=== PATIENT | female | born 1960 | race Caucasian/White ===

== ENCOUNTER 2017-05-05 11:10 | Emergency (ER) | payer BC ==
--- NOTE | 2017-05-05 12:26 | UC ---
Abdominal Pain Female HPI - HPI Summary HPI Summary: 56 yo female with LLQ abd pain x 4-5 days no f/c no n/v slighty softer stools she has had diverticulitis in the past and states this feels the same she does not wish to be imaged because she has required extensive imaging for her various medical problems In process of moving here/no local MD - History of Current Complaint Chief Complaint: UCAbdominalPain Stated Complaint: ABD PAIN Time Seen by Provider: 05/05/17 12:15 Hx Obtained From: Patient Onset/Duration: Gradual Onset Timing: Constant Severity Initially: Moderate Severity Currently: Moderate Pain Intensity: 4 - worse with movement Pain Scale Used: 0-10 Numeric Location: Discrete At: LLQ Radiates: No Character: Aching, Cramping Aggravating Factor(s): Food, Movement Alleviating Factor(s): Nothing Associated Signs and Symptoms: Negative: Diaphoresis, Fever, Cough, Chest Pain, Dizzy, Back Pain, Constipation, Blood in Stool, Urinary Symptoms, Decreased Appetite, Vaginal Bleeding, Vaginal Discharge, Nausea, Vomiting, Diarrhea Simlar Episode/Dx as:: diverticulitis x 4-5 Allergies/Adverse Reactions: Allergies Allergy/AdvReac Type Severity Reaction Status Date / Time Prochlorperazine Allergy Severe See Comment Verified 05/05/17 11:36 [From Compazine] Azithromycin [From Zithromax] AdvReac Mild Diarrhea Verified 05/05/17 11:36 Home Medications: Home Medications Cholecalciferol [Vitamin D] 1,000 unit PO DAILY 05/05/17 [History Confirmed ] Letrozole 2.5 mg PO DAILY 05/05/17 [History Confirmed 05/05/17] Lisinopril/HCTZ 20/12.5(NF) [Zestoretic 20/12.5(NF)] 1 tab PO DAILY 05/05/17 [ History Confirmed 05/05/17] Multiple Vitamin [Multiple Vitamins] 1 tab PO DAILY 05/05/17 [History Confirmed 05/05/17] Potassium Chloride [Potassium Chloride ER] 10 meq PO DAILY 05/05/17 [History Confirmed 05/05/17] PMH/Surg Hx/FS Hx/Imm Hx Previously Healthy: Yes Cardiovascular History: Hypertension GI/ History: Diverticulitis Cancer History: Breast Cancer - Surgical History Surgical History: Yes Surgery Procedure, Year, and Place: x1, L masectomy - Social History Alcohol Use: Weekly Substance Use Type: None Smoking Status (MU): Never Smoked Tobacco Review of Systems Constitutional: Negative Skin: Negative Eyes: Negative ENT: Negative Respiratory: Negative Cardiovascular: Negative Gastrointestinal: Abdominal Pain Genitourinary: Negative Motor: Negative Neurovascular: Negative Musculoskeletal: Negative Neurological: Negative Psychological: Negative Is Patient Immunocompromised?: No All Other Systems Reviewed And Are Negative: Yes Physical Exam Triage Information Reviewed: Yes Appearance: Well-Appearing, No Pain Distress, Well-Nourished Vital Signs: Initial Vital Signs Temp 98.8 F 05/05/17 11:24 Pulse 82 05/05/17 11:24 Resp 16 05/05/17 11:24 BP 133/71 05/05/17 11:24 Pulse Ox 100 05/05/17 11:24 Eyes: Positive: Conjunctiva Clear ENT: Positive: Hearing grossly normal. Negative: TMs normal, TM bulging, Sinus tenderness, Uvula midline Neck: Positive: Supple, Nontender, No Lymphadenopathy Respiratory: Positive: Lungs clear, Normal breath sounds, No respiratory distress, No accessory muscle use Cardiovascular: Positive: RRR, No Murmur Abdomen Description: Negative: Nontender - tender LLQ, CVA Tenderness (R), CVA Tenderness (L) Musculoskeletal: Positive: ROM Intact, No Edema Neurological: Positive: Alert, Muscle Tone Normal Psychological Exam: Normal Skin Exam: Normal Abd Pain Female Course/Dx - Differential Dx/Diagnosis Provider Diagnoses: diverticulitis Discharge - Discharge Plan Condition: Stable Disposition: HOME Prescriptions: Ciprofloxacin TAB* [Cipro 750 MG Tab*] 750 mg PO BID #14 tab Metronidazole [Flagyl 500 MG TAB] 500 mg PO QID #28 tab Patient Education Materials: Diverticulitis (ED) [place] [facility] [place] [facility] [place]Outside] - As Soon As Possible (call for help in finding a local provider) Additional Instructions: recheck for new or worsening symptoms (ER) recheck in 3-4 days if not better call the physician referral center to find a local MD don't hesitate to call with any questions
== END 2017-05-05 12:37 | disposition home or self-care (01) ==
LOC: UCEAST 11:10
DX: K57.92 Diverticulitis of intestine, part unspecified, without perforation or abscess without bleeding (principal); I10 Essential (primary) hypertension; Z88.8 Allergy status to other drugs, medicaments and biological substances; Z88.1 Allergy status to other antibiotic agents
CPT/HCPCS: 99202; G0463

== ENCOUNTER 2018-04-26 11:11 | Inpatient (IN) | payer BC ==
--- NOTE | 2018-04-18 17:15 | HP ---
HISTORY AND PHYSICAL: DATE OF ADMISSION/SURGERY: 04/26/18 DATE OF OFFICE VISIT: 04/18/18 SURGEON: Gladys Dunn MD * (DICTATED BY ADAN CHAMBERS) PROCEDURE: Left total knee arthroplasty. CHIEF COMPLAINT: Left knee pain. HISTORY OF PRESENT ILLNESS: Ms. Noel is a 57-year-old female with continued complaints of left knee pain. She has failed conservative treatment and elected to proceed with a left total knee arthroplasty. PAST MEDICAL HISTORY: Breast cancer, hypertension, and diverticulitis. PAST SURGICAL HISTORY: Appendectomy, lumpectomy, mastectomy, hysterectomy, C- section, and breast biopsies. CURRENT MEDICATIONS: 1. Potassium chloride. 2. Lisinopril/hydrochlorothiazide 20/12.5 mg 2 tabs every day. 3. Calcium. 4. Vitamin D. 5. Tamoxifen 20 mg daily. ALLERGIES: To ZITHROMAX and COMPAZINE. FAMILY HISTORY: Cancer. SOCIAL HISTORY: She is a 57-year-old female. She lives alone. She does not smoke or use drugs. Uses occasional alcohol. REVIEW OF SYSTEMS: A complete 14-point review of systems was reviewed with the patient. It was all negative or noncontributory. She denies history of DVT, PE , hepatitis, HIV, or anesthesia problems. PHYSICAL EXAMINATION GENERAL: She is well developed, well nourished, in no acute distress. VITAL SIGNS: She stands 5 feet 1 inch tall, weighs 182 pounds. Her blood pressure is 108/62 and her heart rate is 96. HEENT: Normocephalic, atraumatic. NECK: Supple. No palpable lymph nodes. PULMONARY: The lungs are clear to auscultation bilaterally. CARDIO: Regular rate and rhythm. Strong S1, S2. ABDOMEN: Soft, nontender, nondistended. NEUROLOGICAL: She is alert and oriented x3. MUSCULOSKELETAL: Left lower extremity: The skin is intact. There are no open wounds or abrasions. Range of motion is 10 to 120 degrees of flexion. There is a large joint effusion. She has tenderness over the medial and lateral joint line. She has 2+ dorsalis pedis pulse. Her lower extremity muscle group strengths are intact at 5/5. ASSESSMENT AND PLAN: Ms. Noel is a 57-year-old female with end-stage osteoarthritis of the left knee. She has failed conservative treatment and she has elected to proceed with surgery, which is scheduled for 04/26/[address] Dunn discussed the risks and benefits of the surgery at today's visit and all of her questions were answered. She will follow up in 2 weeks after the surgery. ADAN CHAMBERS [id number]/[facility] #: [id number] JESSICA
[~2018-04-26 11:11] MED LIST: Acetaminophen IV 1GM/100ML * 1,000 MG/100 ML VIAL IVPB ONE; Buffered Lidocaine 0.9% SYRIN* 5 ML/SYR SYRINGE INTRADERM ONE; Dexamethasone IV* 4 MG/ML 1 ML (4 MG) IV SLOW PU ONE; Famotidine IV* 10 MG/ML 2 ML (20 mg) IV ONE; Gabapentin CAP(*) 300 MG PO ONE; Lactated Ringers 1000 ML Bag* 1,000 ML IV SCH; Tranexamic Acid 1,000 MG in NS 0.9% 50 ML* (outpatient use) IV SCH; celeCOXIB CAP* 200 MG PO ONE
--- OUTSIDE RECORDS SUMMARY | 2018-04-26 11:16 | XMS REPORT | Continuity of Care Document ---
:1960 External Reference #:[id number] Author Name Alesia King Care Team Providers Name Role Phone Rajiv Chavez MD Primary Care Physician Unavailable Payers Type Date Identification Numbers Payment Provider Subscriber Policy Number: [id number] [employer] Yady Noel PayID: [id number] [address] [address] [id number] Advance Directives Description No Information Available Problems Date Description Provider Status Onset: 07/26/2017 Essential hypertension Chloe Chavarria NP Active Onset: 07/26/2017 Malignant neoplasm of female breast Chloe Chavarria NP Active Note: left Breast Ca with - sentinal node 2000, recurrance in lymph node - Mastectomy 2009 Onset: 07/26/2017 Osteoporosis Chloe Chavarria NP Active Onset: 07/26/2017 Arthritis of knee Chloe Chavarria NP Active Onset: 10/18/2017 Localized, primary osteoarthritis Gladys Dunn M.D. Active Onset: 02/16/2018 Diverticular disease Delta Marcos M.D.,FACP Note: on CT Onset: 07/26/2017 Hypokalemia Chloe Chavarria NP Resolved Resolved: 02/16/2018 Family History Date Family Member(s) Problem(s) Comments Father Hypertension Father due to Dementia () Father Dementia age 76 Mother Arthritis Mother Breast Cancer Dx early 70's, living at age 77 Siblings 2 Social History Type Date Description Comments Sex Unknown Marital Status Single Lives With Alone partner on weekends Occupation [employer] Tobacco Use Start: Unknown End: Former Cigarette Smoker Unknown ETOH Use 02/16/2018 Drinks 2 Alcoholic Beverages Per Week Tobacco Use Start: Unknown End: Patient is a former smoked 1 pk/day for Unknown smoker 6 yrs age [age] Recreational Drug Use Denies Drug Use Tobacco Use Start: Unknown Light tobacco smoker (10 or fewer cigarettes/day) Smoking Status Reviewed: 04/18/18 Light tobacco smoker (10 or fewer cigarettes/day) Exercise Type/Frequency Exercises rarely Allergies, Adverse Reactions, Alerts Date Description Reaction Status Severity Comments 07/26/2017 Zithromax upset stomach Active 07/26/2017 Compazine severe depression Active Medications Medication Date Status Form Strength Qnty SIG Indications Ordering Provider Potassium Active Tablets ER 10Meq 180tab take 2 Rajiv Chloride ER 018 s tablets D. Kathy, by mouth M.DAndry,FACP every day Lisinopril-Hyd Active Tablets 20-12.5mg 60tabs Take 2 Solomon rochlorothiazi 018 Tablets Pachikara, de By Mouth M.D. Every Day Calcium 600 Active Tablets 600mg daily Unknown High Potency 000 Vitamin D High Active Capsules 1000Unit 1 by Unknown Potency 000 mouth every day Tamoxifen Active Tablets 20mg daily Unknown Citrate 000 Advil Hx Tablets 200mg 2 tabs 2 Rajiv 018 - times a D. [place], day as Kaila,FACP 018 needed Benzonatate Hx Capsules 200mg 21caps one tab R05 Chloe 018 - three Chavarria, times a [employer] 018 day for cough Multi For Her Hx Capsules once a Unknown 000 - day otc 018 Lisinopril Hx Tablets 20mg 1 by Unknown 000 - mouth every day 018 Letrozole Hx Tablets 2.5mg 1 by Unknown 000 - mouth every day 018 Medications Administered in Office Medication Date Status Form Strength Qnty SIG Indications Ordering Provider Synvisc Or Administered Injection Gladys Synvisc-One Shena Dunn M.D. Injection 1 MG Synvisc Or Administered Injection Gladys Synvisc-One 018 Kaila Dunn Injection 1 MG Synvisc Or Administered Injection Magnolia B Synvisc-One 018 Dobson, Injection 1 MG PA Synvisc Or Administered Injection Magnolia B Synvisc-One 018 Dobson, Injection 1 MG PA Synvisc Or Administered Injection Gladys Synvisc-One 018 Kaila Dunn Injection 1 MG Synvisc Or Administered Injection Gladys Synvisc-One Shena Dunn M.D. Injection 1 MG Immunizations Description No Information Available Vital Signs Date Vital Result Comment 04/18/2018 8:34am Height 61 inches 5'1" Weight 182.00 lb Heart Rate 96 /min BP Systolic 108 mmHg BP Diastolic 62 mmHg BMI (Body Mass Index) 34.4 kg/m2 04/16/2018 3:56pm Height 60 inches 5'0" Weight 183.00 lb Heart Rate 83 /min BP Systolic Sitting 128 mmHg large adult cuff right arm BP Diastolic Sitting 80 mmHg large adult cuff right arm Body Temperature 98.3 F O2 % BldC Oximetry 97 % at rest on room air BMI (Body Mass Index) 35.7 kg/m2 03/23/2018 8:11am Height 61 inches 5'1" Weight 186.00 lb BP Systolic 144 mmHg BP Diastolic 86 mmHg Body Temperature 98.4 F BMI (Body Mass Index) 35.1 kg/m2 02/16/2018 8:24am Height 61 inches 5'1" Weight 183.00 lb Heart Rate 85 /min BP Systolic Sitting 120 mmHg BP Diastolic Sitting 68 mmHg BP Systolic Recheck 132 mmHg BP Diastolic Recheck 70 mmHg Body Temperature 97.9 F O2 % BldC Oximetry 97 % BMI (Body Mass Index) 34.6 kg/m2 11/29/2017 9:37am Height 61 inches 5'1" Weight 180.00 lb BP Systolic 130 mmHg BP Diastolic 84 mmHg Body Temperature 98.4 F BMI (Body Mass Index) 34.0 kg/m2 11/22/2017 10:29am Height 61 inches 5'1" Weight 179.00 lb BP Systolic 126 mmHg BP Diastolic 82 mmHg Body Temperature 99.1 F BMI (Body Mass Index) 33.8 kg/m2 11/15/2017 8:06am Height 61 inches 5'1" Weight 179.00 lb BP Systolic 130 mmHg BP Diastolic 74 mmHg Respiratory Rate 16 /min Body Temperature 98.2 F Pain Level 8 BMI (Body Mass Index) 33.8 kg/m2 10/18/2017 8:20am Height 61 inches 5'1" Weight 179.00 lb BP Systolic 122 mmHg BP Diastolic 71 mmHg Respiratory Rate 15 /min Pain Level 7 BMI (Body Mass Index) 33.8 kg/m2 07/26/2017 2:26pm Height 61 inches 5'1" Weight 179.00 lb Heart Rate 80 /min BP Systolic 118 mmHg BP Diastolic 70 mmHg Body Temperature 100.0 F O2 % BldC Oximetry 98 % BMI (Body Mass Index) 33.8 kg/m2 Results Test Date Facility Test Result H/L Range Note Basic Metabolic 04/17/2018 [facility] Sodium 141 mmol/L N 135- [address] [place] [address] [phone] Potassium 3.7 mmol/L N 3.5-5.0 Chloride 104 mmol/L N 101-111 Co2 Carbon Dioxide 27 mmol/L N 22-32 Anion Gap 10 mmol/L N 2-11 Glucose 128 mg/dL High 70-100 Blood Urea Nitrogen 18 mg/dL N 6-24 Creatinine 0.68 mg/dL N 0.51-0.95 BUN/Creatinine Ratio 26.5 High 8-20 Calcium 9.5 mg/dL N 8.6-10.3 Egfr Non- 89.8 >60 Egfr 108.7 >60 1 CBC Auto Diff 04/17/2018 [facility] White Blood 7.8 10^3/uL N 3.5-10.[address] [place] [address] [phone] Red Blood Count 4.43 10^6/uL N 4.00-5.40 Hemoglobin 13.0 g/dL N 12.0-16.0 Hematocrit 39 % N 35-47 Mean Corpuscular Volume 87 fL N 80-97 Mean Corpuscular Hemoglobin 30 pg N 27-31 Mean Corpuscular HGB Conc 34 g/dL N 31-36 Red Cell Distribution Width 14 % N 10.5-15 Platelet Count 325 10^3/uL N 150-450 Mean Platelet Volume 8.7 fL N 7.4-10.4 Abs Neutrophils 4.8 10^3/uL N 1.5-7.7 Abs Lymphocytes 2.3 10^3/uL N 1.0-4.8 Abs Monocytes 0.4 10^3/uL N 0-0.8 Abs Eosinophils 0.2 10^3/uL N 0-0.6 Abs Basophils 0.1 10^3/uL N 0-0.2 Abs Nucleated RBC 0 10^3/uL Granulocyte % 61.4 % Lymphocyte % 29.7 % Monocyte % 5.4 % Eosinophil % 2.8 % Basophil % 0.7 % Nucleated Red Blood Cells % 0 Laboratory test 04/17/2018 [facility] Partial 29.6 seconds N 26.0-36.3 finding [address] [facility] [place] [address] PTT [phone] Inr/Protime 04/17/2018 [facility] Inr 1.01 N 0.77-1.02 [address] [place] [address] [phone] Basic Metabolic 11/17/2017 [facility] Sodium 138 mmol/L N 135- 145 Panel [address] [place] [address] [phone] Potassium 3.8 mmol/L N 3.5-5.0 Chloride 105 mmol/L N 101-111 Co2 Carbon Dioxide 27 mmol/L N 22-32 Anion Gap 6 mmol/L N 2-11 Glucose 95 mg/dL N 70-100 Blood Urea Nitrogen 17 mg/dL N 6-24 Creatinine 0.66 mg/dL N 0.51-0.95 BUN/Creatinine Ratio 25.8 High 8-20 Calcium 9.4 mg/dL N 8.6-10.3 Egfr Non- 93.0 >60 Egfr 112.5 >60 2 Lipid Profile 11/17/2017 [facility] Triglycerides 212 mg/dL 3 (Trig/Chol/HDL) [address] [place] [address] [phone] Cholesterol 213 mg/dL 4 HDL Cholesterol 41.5 mg/dL 5 LDL Cholesterol 129 mg/dL 6 1 Because ethnic data is not always readily available, this report includes an eGFR for both -Americans and non- Americans. The National Kidney Disease Education Program (NKDEP) does not endorse the use of the MDRD equation for patients that are not between the ages of 18 and 70, are , have extremes of body size, muscle mass, or nutritional status, or are non- or non-. According to the National Kidney Foundation, irrespective of diagnosis, the stage of the disease is based on the level of kidney function: Stage Description GFR(mL/min/1.73 m(2)) 1 Kidney damage with normal or decreased GFR 90 2 Kidney damage with mild decrease in GFR 60-89 3 Moderate decrease in GFR 30-59 4 Severe decrease in GFR 15-29 5 Kidney failure <15 (or dialysis) 2 Because ethnic data is not always readily available, this report includes an eGFR for both -Americans and non- Americans. The National Kidney Disease Education Program (NKDEP) does not endorse the use of the MDRD equation for patients that are not between the ages of 18 and 70, are , have extremes of body size, muscle mass, or nutritional status, or are non- or non-. According to the National Kidney Foundation, irrespective of diagnosis, the stage of the disease is based on the level of kidney function: Stage Description GFR(mL/min/1.73 m(2)) 1 Kidney damage with normal or decreased GFR 90 2 Kidney damage with mild decrease in GFR 60-89 3 Moderate decrease in GFR 30-59 4 Severe decrease in GFR 15-29 5 Kidney failure <15 (or dialysis) 3 Desirable: <150 Borderline High: 150-199 High: 200-499 Very High: >500 4 Desirable: <200 Borderline High: 200-239 High: >239 5 Low: <40 Desirable: 40-60 High: >60 6 Desirable: <100 Near Optimal: 100-129 Borderline High: 130-159 High: 160-189 Very High: >189 Procedures Date Code Description Status 04/16/2018 83061 EKG Tracing & Interpretation Completed 12/15/2017 64455200 Mammogram Completed 11/29/2017 Inject/Drain Joint/Bursa Major W/O US Completed 11/22/2017 Inject/Drain Joint/Bursa Major W/O US Completed 11/15/2017 Inject/Drain Joint/Bursa Major W/O US Completed Encounters Type Date Location Provider Dx Diagnosis Office Visit 03/23/2018 [facility] Gladys Dunn, M25.561 Pain in right 8:00a [facility] Bright knee M25.562 Pain in left knee M25.461 Effusion, right knee M25.462 Effusion, left knee M17.0 Bilateral primary osteoarthritis of knee Office Visit 02/16/2018 8:40a [facility] Internal Rajiv Valdez I10 Essential ( primary) Medicine - Kaila Chavez,FACP hypertension [address] M17.0 Bilateral primary osteoarthritis of knee M81.8 Other osteoporosis without current pathological fracture Office Visit 10/18/2017 8:00a [facility] Gladys Dunn, M25.561 Pain in right [facility] knee M25.562 Pain in left knee M25.461 Effusion, right knee M25.462 Effusion, left knee M17.0 Bilateral primary osteoarthritis of knee M19.071 Primary osteoarthritis, right ankle and foot Office Visit 07/26/2017 2:00p [facility] Internal Chloe B34.9 Viral infection, Medicine - Aura, [employer] unspecified [address] R05 Cough I10 Essential (primary) hypertension Plan of Treatment Future Appointment(s):04/26/2018 12:30 pm - Russ Hernandez PA-C at [facility]04/26/2018 12:30 pm - ADAN Kasper at [facility]04/26/2018 12:30 pm - Gladys Dunn M.D. at [facility]07/16/2018 9:00 am - Rajiv Chavez M.D.,FACP at [facility] Internal Medicine - [address]/18/2018 - Gladys Dunn M.D.M25.562 Pain in left kneeFollow up:Follow up: 2 weeks after hcyloveV01.462 Effusion, left kneeM17.12 Unilateral primary osteoarthritis, left knee
--- OUTSIDE RECORDS SUMMARY | 2018-04-26 11:16 | XMS REPORT | Continuity of Care Document ---
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 [facility] Tobacco Use Start: Unknown End: Former Cigarette Smoker Unknown ETOH Use 02/16/2018 Drinks 2 Alcoholic Beverages Per Week Tobacco Use Start: Unknown End: Patient is a former smoked 1 pk/day for Unknown smoker 6 yrs age [age] Recreational Drug Use Denies Drug Use Tobacco Use Start: Unknown Light tobacco smoker (10 or fewer cigarettes/day) Smoking Status Reviewed: 04/16/18 Light tobacco smoker (10 or fewer cigarettes/day) Exercise Type/Frequency Exercises rarely Allergies, Adverse Reactions, Alerts Date Description Reaction Status Severity Comments 07/26/2017 Zithromax upset stomach Active 07/26/2017 Compazine severe depression Active Medications Medication Date Status Form Strength Qnty SIG Indications Ordering Provider Advil Active Tablets 200mg 2 tabs 2 Rajiv 018 times a D. Strong, day as M.D.,FACP needed Potassium Active Tablets ER 10Meq 180tab take 2 Rajiv Chloride ER 018 s tablets D. Strong, by mouth M.D.,FACP every day Lisinopril-Hyd Active Tablets 20-12.5mg 60tabs Take 2 [place] rochlorothiazi 018 Tablets Pachikara, de By Mouth M.D. 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 018 day for cough Lisinopril Hx Tablets 20mg 1 by Unknown 000 - mouth every day 018 Letrozole Hx Tablets 2.5mg 1 by Unknown 000 - mouth every day 018 Medications Administered in Office Medication Date Status Form Strength Qnty SIG Indications Ordering Provider Synvisc Or Administered Injection Gladys Synvisc-One 018 Kaila Dunn Injection 1 MG Synvisc Or Administered Injection Gladys Synvisc-One 018 Kaila Dunn Injection 1 MG Synvisc Or Administered Injection Magnolia B Synvisc-One 018 Dobson, Injection 1 MG PA Synvisc Or Administered Injection Magnolia B Synvisc-One 018 Dobson, Injection 1 MG PA Synvisc Or Administered Injection Gladys Synvisc-One Shena Dunn M.D. Injection 1 MG Synvisc Or Administered Injection Gladys Synvisc-One Shena Dunn M.D. Injection 1 MG Immunizations Description No Information Available Vital Signs Date Vital Result Comment 04/16/2018 3:56pm Height 60 inches 5'0" Weight [...] Test Result H/L Range Note Basic Metabolic 11/17/2017 [facility] Sodium 138 mmol/L N 135- [address] [place] [address] [phone] Potassium 3.8 mmol/L N 3.5-5.0 Chloride 105 mmol/L N 101-111 Co2 Carbon Dioxide 27 mmol/L N 22-32 Anion Gap 6 mmol/L N 2-11 Glucose 95 mg/dL N 70-100 Blood Urea Nitrogen 17 mg/dL N 6-24 Creatinine 0.66 mg/dL N 0.51-0.95 BUN/Creatinine Ratio 25.8 High 8-20 Calcium 9.4 mg/dL N 8.6-10.3 Egfr Non- 93.0 >60 Egfr 112.5 >60 1 Lipid Profile 11/17/2017 [facility] Triglycerides 212 mg/dL 2 (Trig/Chol/HDL) [address] [place] [address] [phone] Cholesterol 213 mg/dL 3 HDL Cholesterol 41.5 mg/dL 4 LDL Cholesterol 129 mg/dL 5 1 Because ethnic data is not always [...] 5 Kidney failure <15 (or dialysis) 2 Desirable: <150 Borderline High: 150-199 High: 200-499 Very High: >500 3 Desirable: <200 Borderline High: 200-239 High: >239 4 Low: <40 Desirable: 40-60 High: >60 5 Desirable: <100 Near Optimal: 100-129 Borderline High: 130-159 High: 160-189 Very High: >189 Procedures Date Code Description Status 12/15/2017 [id number] Mammogram Completed 11/29/2017 Inject/Drain Joint/Bursa Major W/O US Completed 11/22/2017 Inject/Drain Joint/Bursa Major W/O US Completed 11/15/2017 Inject/Drain Joint/Bursa Major W/O US Completed Encounters Type Date Location Provider Dx Diagnosis Office Visit 03/23/2018 Orthopedic Gladys Dunn, M25.561 Pain in right 8:00a [facility] Bright knee M25.562 Pain in left knee M25.461 Effusion, right knee M25.462 Effusion, left knee M17.0 Bilateral primary osteoarthritis of knee Office Visit 02/16/2018 8:40a [facility] Internal Rajiv Valdez I10 Essential ( primary) Medicine - Kaila Chavez,FACP hypertension [address] M17.0 Bilateral primary osteoarthritis of knee M81.8 Other osteoporosis without current pathological fracture Office Visit 10/18/2017 8:00a [facility] Gladys Dunn, M25.561 Pain in right Of Rm Bright knee M25.562 Pain in left knee M25.461 Effusion, right knee M25.462 Effusion, left knee M17.0 Bilateral primary osteoarthritis of knee M19.071 Primary osteoarthritis, right ankle and foot Office Visit 07/26/2017 2:00p [facility] Internal Chloe B34.9 Viral infection, Medicine - 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 at [facility]04/18/2018 8:30 am - Gladys Dunn M.D. at [facility]07/16/2018 9:00 am - Rajiv Chavez M.D.,FACP at [facility] Internal Medicine - [address]/16/2018 - Jody Griggs MDZ01.818 Encounter for other preprocedural examinationNew Orders:EKG, Ordered: 04/16/18I10 Essential ( primary) lumdkfqbrsasP74.0 Bilateral primary osteoarthritis of kneeI45.81 Long QT syndromeReferral:Tory Wade MD, Cardiovsclr Disease
[2018-04-26] MEDS ORDERED: fentaNYL* 50 MCG/ML 2 ML VIAL (100 MCG VIAL) ONE (11:50)
[2018-04-26] MEDS ORDERED: Midazolam* 1 MG/ML 5 ML VIAL (5 MG) ONE ×2 (11:50→13:12)
[2018-04-26] MEDS ORDERED: Bupivacaine 0.5% SDV PF* 30ML VIAL ONE (11:51)
[2018-04-26] MEDS ORDERED: Propofol* 10 MG/ML 20 ML BTL ONE ×2 (11:51→14:46)
[2018-04-26] MEDS ORDERED: Gabapentin CAP(*) 300 MG ONE (12:22)
[2018-04-26] MEDS ORDERED: Famotidine IV* 10 MG/ML 2 ML (20 mg) ONE (12:22)
[2018-04-26] MEDS ORDERED: Dexamethasone IV* 4 MG/ML 1 ML (4 MG) ONE (12:22)
[2018-04-26] MEDS ORDERED: celeCOXIB CAP* 100 MG ONE (12:22)
[2018-04-26] MEDS ORDERED: ceFAZolin 2 GM PREMIX in ORs 2 GM/50 ML BAG IVPB ONE (12:23)
[2018-04-26] MEDS ORDERED: Acetaminophen IV 1GM/100ML * 100 ML ONE (12:44)
[2018-04-26] MEDS ORDERED: ROPIVACAINE 5 MG/ML 30 ML BTL (0.5%) ONE (12:55)
[2018-04-26] MEDS ORDERED: Bupivacaine 0.5%* 50 ML VIAL ONE (14:06)
[2018-04-26] MEDS ORDERED: fentaNYL* 50 MCG/ML 2 ML VIAL (100 MCG VIAL) IV PRN (14:25)
[2018-04-26] MEDS ORDERED: DiMENhydriNATE IV* 50 MG/ML VIAL IV PUSH PRN (14:25)
[2018-04-26] MEDS ORDERED: Ondansetron INJ* 2 MG/ML VIAL IV PRN ×2 (14:25→16:20)
[2018-04-26] MEDS ORDERED: Naloxone* 0.4 MG/ML 1 ML VIAL IV PRN (14:25)
[2018-04-26] MEDS ORDERED: oxyCODONE/Acetamin 5/325 MG* TAB PO PRN ×2 (14:25→16:20)
[2018-04-26] MEDS ORDERED: HYDROmorphone INJ1* 1 MG/ML SYRINGE IV PRN (14:25)
[2018-04-26] MEDS ORDERED: Scopolamine 1.5 mg* PATCH TRANSDERM PRN (14:25)
[2018-04-26] MEDS ORDERED: Acetaminophen TAB* 325 MG PO PRN (16:20)
[2018-04-26] MEDS ORDERED: Cyclobenzaprine TAB* 10 MG PO PRN (16:20)
[2018-04-26] MEDS ORDERED: Morphine VIAL* 4 MG/ML VIAL (1 ml vial) IV PRN (16:20)
[2018-04-26] MEDS ORDERED: Magnesium Hydroxide LIQ* 30 ML UDC PO PRN (16:20)
[2018-04-26] MEDS ORDERED: diPHENhydraMINE IV* 50 MG/ML 1 ml VIAL (BENADRYL) IV PRN (16:20)
[2018-04-26] MEDS ORDERED: Bisacodyl SUPP* 10 MG SUPP PR PRN (16:20)
[2018-04-26] MEDS ORDERED: Warfarin TAB(*) 6 MG PO ONE (17:00)
[2018-04-26] MEDS: Lactated Ringers 1000 ML Bag* 1,000 ML IV SCH (18:45)
--- NOTE | 2018-04-26 20:17 | CONS ---
CONSULTATION REPORT: ADDENDUM: Regarding breast cancer history, I would recommend the patient's tamoxifen is held as this could increase her risk of DVT. I would recommend contacting Oncology regarding when to restart this medication in the postop period. CORRY LE, DEENA [id number]/CPS #: [id number] JESSICA
[2018-04-26] MEDS: oxyCODONE/Acetamin 5/325 MG* TAB PO PRN (20:20)
[2018-04-26] MEDS: ceFAZolin 1 GM ADVAN(*) 1 GM in NS 0.9% 50 ML* 50 ML IVPB SCH (21:11)
[2018-04-26] MEDS: Docusate CAP* 100 MG PO SCH (21:12)
[2018-04-26] MEDS: Magnesium Hydroxide LIQ* 30 ML UDC PO SCH (21:13)
--- NOTE | 2018-04-26 22:09 | CONS ---
ADDENDUM NOW INCLUDED ON THIS REPORT CC: Dr. Payne * CONSULTATION REPORT: DATE OF CONSULT: 04/26/18 PRIMARY CARE PROVIDER: Dr. Payne. REQUESTING PHYSICIAN IN CONSULT: Dr. Dunn. ATTENDING PHYSICIAN: Dr. Karimi (dictated by Corry Le, DEENA) REASON FOR CONSULT: Co-medical management of hypertension. HISTORY OF PRESENT ILLNESS/HOSPITAL COURSE: I will refer you to Dr. Dunn's history and physical dictated on 04/18/18 for complete details, but in short, Ms. Noel is a 57-year-old female with a past medical history of breast cancer , hypertension, diverticulitis, hyperlipidemia, osteoarthritis, who [place] [facility] [place] an elective left total knee replacement. PAST MEDICAL HISTORY: 1. Breast cancer. 2. Hypertension. 3. Diverticulitis. 4. Hyperlipidemia. 5. Depression. 6. Anxiety. PAST SURGICAL HISTORY: 1. Appendectomy. 2. Lumpectomy. 3. Mastectomy. 4. Hysterectomy. 5. . 6. Breast biopsy. HOME MEDICATIONS: 1. Tamoxifen 20 mg p.o. q.a.m. 2. Potassium chloride 20 mEq p.o. q.a.m. 3. Lisinopril/HCTZ /.5 two tabs p.o. q.a.m. 4. Vitamin D 2000 units p.o. q.a.m. 5. Calcium 600 mg p.o. q.a.m. ALLERGIES: COMPAZINE - severe depression, AZITHROMYCIN - diarrhea. FAMILY HISTORY: The patient's father who is had a history of hypertension and dementia. The patient's mother who is still alive at age 78 has a history of breast cancer. SOCIAL HISTORY: The patient does not currently smoke. Per records, smoked approximately 6 years in her early teens to early 20s. The patient denies drug use. The patient reports she drinks 1 glass of wine socially approximately once per week. The patient lives alone. The patient reports she is independent with her ADLs. It should be noted that the patient has 5 stairs leading up to her residence, which are varying in sizes, and partner at bedside reports are not up to code. Although once the patient is above those stairs, she lives in a 1-level apartment. REVIEW OF SYSTEMS: The patient denies headache, dizziness, fever/chills, chest pain, shortness of breath, nausea, vomiting, diarrhea, pain, numbness/tingling. A 12-point review of systems was completed and all were negative. PHYSICAL EXAM: General: Ms. Noel is a well-developed, well-nourished woman , lying on the stretcher in PACU. She is in no acute distress. She appears stated age. Vital Signs: Temp 99.7, heart rate 72, respirations 22, O2 100% on 2 L, BP 125/89. HEENT: EOMs intact. Oral mucosa moist without lesions. Pharynx clear. Neck: Full range of motion. Supple. No lymphadenopathy. Respiratory: Symmetrical chest expansion. No accessory muscle use. Lungs are clear to auscultation. No rhonchi, wheezing, or rubs. CV: Regular rate and rhythm. S1/S2 present. No murmurs, rubs, or gallops. Extremities: Skin is warm and smooth. No edema. No clubbing or cyanosis. Pedal pulses 2+ bilaterally. The patient has mild decreased sensation in left lower extremity due to spinal anesthesia. Musculoskeletal: No pain or deformities. Abdomen: Soft, nontender to palpation. Bowel sounds x4. Neuro: Awake, alert, and oriented x4. Motor strength is 5/5 in the upper and lower extremities bilaterally. Skin: Grossly intact without lesions. Dressing to left knee is clean, dry, and intact. LABORATORY DATA: Labs obtained on 04/17/18 are as follows: WBC 7.8, hemoglobin 13, hematocrit 39, platelets 325. Sodium 141, potassium 3.7, chloride 104, carbon dioxide 27, BUN 18, creatinine 0.68. ASSESSMENT AND PLAN: Ms. Noel is a 57-year-old female with a past medical history of breast cancer, hypertension, diverticulitis, hyperlipidemia, depression, and anxiety, who [place] [facility] [place] an elective left total knee replacement. The patient will be inpatient and we will follow along and co -medical manage. 1. Osteoarthritis/status post left total knee replacement. We will defer management to ortho team. 2. History of breast cancer. The patient may resume tamoxifen 20 mg p.o. q.a.m. 3. Hypertension. The patient is currently normotensive. Due to being in the postoperative period, we will hold the patient's lisinopril and HCTZ for now. We will monitor the patient's blood pressure and restart these medications slowly as the patient tolerates. We will start by adding back in lisinopril, then HCTZ. It should also be noted in reviewing the patient's preoperative clearance, her primary care provider noted a prolonged QT interval; therefore, she was sent to Cardiology for cardiac clearance. The patient was seen by Cardiology and underwent a repeat EKG and an echo. Cardiology documents that the patient's QTc is within normal limits and abnormal EKG can be attributed to longstanding hypertension. The patient's echo was also within normal limits with an ejection fraction of 55% to 60%. The patient was cleared for surgery by Cardiology. The patient would benefit from continued management of hypertension with medication and also lifestyle. 4. Electrolyte replacement. It should be noted that the patient is on potassium 20 mEq daily. I suspect this was started as the patient is on 25 mg HCTZ daily. Since we are holding the patient's HCTZ, I will also hold the patient's potassium and it would be beneficial to monitor the BMP. 5. Diverticulitis. This is not a current problem. 6. Hyperlipidemia. The patient carries a history of hyperlipidemia. Labs drawn in November 2017 reveal a total cholesterol of 213, LDL of 129, and HDL of 41.5. The patient would benefit from a cholesterol-lowering medication, but I will defer this to the patient's primary care provider at discharge. 7. Depression/anxiety. The patient reports that she suffered from depression and anxiety as a teenager and young adult. She is not experiencing any anxiety or depression currently. The patient can follow up with her primary care as needed. 8. Code status. The patient is a full code. 9. DVT prophylaxis. This has been addressed by the ortho team. The patient has been ordered Lovenox subcu 30 mg q.24 hours and Coumadin. I will defer further management to the ortho team. 10. FEN. Once again, this has been addressed by the ortho team. The patient will receive lactated Ringer's. She will also be started on a regular diet. TIME SPENT: Approximately 45 minutes was spent on this consultation, greater than half the time was spent with the patient and caregiver obtaining my history , performing my physical exam, and reviewing the plan of care. This case has also been reviewed with my attending, Dr. Karimi, who is in agreement with my plan. Thank you very much for allowing us to participate in the patient's care. We will follow along with you during her hospital stay. CORRY LE NP ADDENDUM: Regarding breast cancer history, I would recommend the patient's tamoxifen is held as this could increase her risk of DVT. I would recommend contacting Oncology regarding when to restart this medication in the postop period. CORRY LE NP [id number]/CPS #: [id number] [place]-[id number]/CPS #: [id number] JESSICA
[2018-04-26] MEDS: oxyCODONE TAB* 5 MG TAB PO PRN (23:24)
[2018-04-27] MEDS: oxyCODONE/Acetamin 5/325 MG* TAB PO PRN ×3 (03:24→14:27)
[2018-04-27] MEDS: ceFAZolin 1 GM ADVAN(*) 1 GM in NS 0.9% 50 ML* 50 ML IVPB SCH ×2 (05:42→12:29)
[2018-04-27] MEDS: oxyCODONE TAB* 5 MG TAB PO PRN ×2 (05:42→11:10)
[2018-04-27] MEDS: Lactated Ringers 1000 ML Bag* 1,000 ML IV SCH (05:44)
[2018-04-27 05:47] LABS: Hematocrit 31 % (35-47); Hemoglobin 10.3 g/dl (12.0-16.0); Mean Platelet Volume 7.9 fL (7.4-10.4); Platelet Count 269 10^3/ul (150-450)
[2018-04-27 05:52] LABS: INR 1.1 (0.77-1.02)
[2018-04-27 06:07] LABS: BUN/Creatinine Ratio 17.2 (8-20); Calcium 8.3 mg/dL (8.6-10.3); EGFR Non-African American 107.9 (>60); Potassium 3.7 mmol/L (3.5-5.0)
[2018-04-27] MEDS: Docusate CAP* 100 MG PO SCH (07:52)
[2018-04-27] MEDS: Magnesium Hydroxide LIQ* 30 ML UDC PO SCH (07:54)
[2018-04-27] MEDS ORDERED: Vitamin THERAPEUTIC TAB PO SCH (09:00)
[2018-04-27] MEDS ORDERED: TAMOXIFEN CITRATE 20 MG PO SCH (09:00)
[2018-04-27] MEDS ORDERED: Calcium Carbonate TAB* 1250 MG (CALCIUM 500 MG) PO SCH (09:00)
[2018-04-27] MEDS ORDERED: Cholecalciferol TAB* 1000 UNITS PO SCH (09:00)
--- NOTE | 2018-04-27 11:11 | PN ---
Progress Note - Progress Note Date of Service: 04/27/18 SOAP: Subjective: []Patient seen OOB in chair she is doing well despite left knee pain. She states she has a high pain tolerance. She is hoping that she will be able to go home later today after her second therapy session. She denies SOB, CP, palpitations or dizziness. Objective: [] Vital Signs Temp 97.8 F 04/27/18 07:26 Pulse 64 04/27/18 07:26 Resp 16 04/27/18 10:40 BP 123/76 04/27/18 07:26 Pulse Ox 100 04/27/18 07:26 Intake & Output 04/26/18 04/27/18 04/27/18 18:59 06:59 18:59 Intake Total 1700 1798 480 Output Total 800 1950 Balance 900 -152 480 Weight 180 lb 9.6 oz Intake: IV Fluids 1700 990 LR 990 lr 1700 IVPB 58 ABX - CEFAZOLIN 58 Oral 750 480 Output: Russell 500 1950 Residual 300 Rusesll 16 Fr 300 Laboratory Results - last 24 hr 04/27/18 04/27/18 04/27/18 05:18 05:18 05:18 Hgb 10.3 L Hct 31 L Plt Count 269 MPV 7.9 INR (Anticoag Therapy) 1.10 H Sodium 140 Potassium 3.7 Chloride 109 Carbon Dioxide 23 Anion Gap 8 BUN 10 Creatinine 0.58 Est GFR ( Amer) 130.6 Est GFR (Non-Af Amer) 107.9 BUN/Creatinine Ratio 17.2 Glucose 144 H Calcium 8.3 L left knee NIRAV is clean, dry and intact +DF/PF left ankle + Calf pain with palpation and Pj's no calf swelling, soft sensation intact distally Assessment: []s/p left total knee arthroplasty POD #1 Plan: []Will check venous doppler LLE to rule out DVT She would like to go home on Eliquis for DVT prophylaxis, discontinue Coumadin and Lovenox If doppler negative and continues to do well, discharge to home with out patient PT Follow up in 10-[address] Dunn as scheduled Doppler LLE negative for DVT, discharge home this evening
--- NOTE | 2018-04-27 11:45 | OP ---
OPERATIVE NOTE: DATE OF OPERATION: 04/26/18 DATE OF : 64 SURGEON: Gladys Dunn MD. INTERNIST MEDICAL DOCTOR MD: ADAN Gleason Mr. Hernandez did help throughout the procedure with preparation of the leg, wound retraction, manipulation of the knee, and wound closure. ANESTHESIA: Spinal. PRE-OP DIAGNOSIS: Severe end-stage degenerative osteoarthritis of the left knee joint. POST-OP DIAGNOSIS: As above. OPERATIVE PROCEDURE: Left total knee arthroplasty. COMPLICATIONS: None. ESTIMATED BLOOD LOSS: 200 cc. TOURNIQUET TIME: 44 minutes. SPECIMENS: Bone and cartilage from the left knee joint sent to Pathology. HARDWARE USED: This is a Junior and Nephew cemented hardware. Two packages of Simplex bone cement. For the femur, a left size 5 narrow Oxinium Legion posterior stabilized femoral component. For the tibia, a size 3 left Cammy II tibial baseplate. For the insert, an 11-mm posterior stabilized articular insert, size 3- 4, and for the patella a 32-mm 3-peg all poly patella. BRIEF HISTORY/INDICATIONS: Ms. Noel is a 57-year-old female with years of increasingly severe left knee pain. Radiographs showed bone on bone arthritis. She failed conservative treatment with anti-inflammatories, pain medication and intraarticular injections. Due to continued pain and decreased quality of life , she elected to undergo left total knee arthroplasty. Informed consent was obtained from the patient. She understood the risks of the surgery included, but were not limited to, bleeding, infection, damage to nearby structures, continued pain, need for further surgery, intraoperative fracture, nerve palsy, hardware failure or loosening, knee stiffness, stroke, heart attack, blood clot, and . She wished to proceed. INTRAOPERATIVE FINDINGS: Intraoperatively, the patient was noted to have severe end-stage arthritis with a complete loss of cartilage in all 3 compartments. She had extensive osteophyte formation. DESCRIPTION OF PROCEDURE: Ms. Noel was identified in the preanesthesia unit. Her left lower extremity was marked as the correct operative side. Informed consent was signed and placed in the chart. The patient was taken to the operating room and placed under spinal anesthesia. A Russell catheter was placed. Tourniquet was placed on the left thigh. The left lower extremity was prepped and draped in the usual sterile fashion. Preop time-out was made to correctly identify the patient, side and site. Appropriate perioperative antibiotics were given within 1 hour of incision. A midline incision was made with a #10 blade, carried down to the extensor mechanism. A new 10 blade was used to make a standard medial parapatellar arthrotomy. The patella was subluxed laterally. Electrocautery was used to subperiosteally elevate soft tissues off the superomedial tibia to the mid sagittal plane. The knee was flexed up. Anterior horn of the lateral meniscus and ACL were sharply released. A drill was used to enter the distal femur. Intramedullary distal femoral cutting guide was pinned on the distal femur. Oscillating saw was used to make the distal femoral cut. Next, the external rotation guide was pinned on the distal femur. The distal femur was sized to a size 5. Size 5 multi-cutting jig was pinned on the distal femur. Oscillating saw was used to make the appropriate 4 chamfer cuts. Next, attention was turned to the tibia. The PCL was completely released. Extramedullary tibial cutting guide was pinned on the proximal tibia. Oscillating saw was used to make the proximal tibial cut perpendicular to the mechanical axis of the tibia. The knee was brought out into full extension. Spacer block had good fit with the knee in full extension. Medial and lateral ligaments were well balanced. Flexion and extension gaps were well balanced. The knee was flexed up. Lamina counter help was placed both medially and laterally. Any remaining meniscus was removed with electrocautery. Curved osteotome was used to remove any posterior osteophytes. A tibial tray and drop smitha were placed to once again confirm a satisfactory tibial cut. A size 5 narrow left femoral trial was impacted on to the distal femur. The trial had good fit and stability. The box for the posterior stabilized implant was repaired using a reamer and box cut osteotome. Size 3 tibial tray trial with an 11- mm insert trial was placed and the knee was taken through a range of motion. The knee had full extension to 125 degrees of flexion. There was satisfactory patellofemoral tracking. The 7 mm of patellar bone and cartilage was carefully removed using an oscillating saw. The patella was sized to a size 32. Three peg holes were drilled through the size 32 patella. A 32 trial patella with 7.5 thickness was chosen and placed. The knee was taken through a range of motion and there was satisfactory patellofemoral tracking. All trials were carefully removed. The tibia was subluxed anteriorly and sized to a size 3. Proximal tibia was prepared using a size 3 keel punch. All bony cut surfaces were copiously irrigated with sterile saline and dried. Final implants were cemented into place starting with the tibia, followed by the femur and last the patella. A 11-mm insert trial was placed while the knee was brought out into full extension. Tourniquet was turned down at 44 minutes. The knee was copiously irrigated with sterile saline. Electrocautery was used to obtain meticulous hemostasis. Once the cement had fully cured, the insert trial was removed. Any excess cement was removed from around the capsule and hardware. Final insert chosen was a 11 mm posterior stabilized articular insert size 3-4. This was locked into position on the tibial tray. Stability of the insert was checked and rechecked and noted to be stable. The extensor mechanism was closed using interrupted #1 Vicryl. The rest of the incision was closed in a layered fashion using 0 and 2-0 Vicryl. Skin was closed using running 3-0 nylon suture. Sterile Xeroform, 4x4's, and Webril were used to cover the incision. The patient's anesthesia was reversed without difficulty. She was taken to the PACU in stable condition. Intended weightbearing will be weightbearing as tolerated. Intended DVT prophylaxis will be Eliquis. [id number]/[facility] #: [id number] JESSICA
[2018-04-27] MEDS ORDERED: Enoxaparin(*) 30 MG/0.3 ML SYR SUBCUT SCH (12:01)
[2018-04-27 14:24] VITALS: BP 134/76
[2018-04-27] MEDS ORDERED: Apixaban* 2.5 MG TAB PO SCH (17:00)
--- NOTE | 2018-04-28 02:52 | DS ---
AMENDED REPORT NOW INCLUDES DESIGNATED COSIGNER DISCHARGE SUMMARY: DATE OF ADMISSION: 04/26/18 DATE OF DISCHARGE: 04/27/18 ATTENDING PHYSICIAN: Dr. Gladys Dunn * (DICTATED BY ADAN GAY) ADMISSION DIAGNOSIS: Severe end-stage degenerative osteoarthritis of the left knee. DISCHARGE DIAGNOSIS: Severe end-stage degenerative osteoarthritis of the left knee. SURGERY PERFORMED: Left total knee arthroplasty. HOSPITAL COURSE: The patient is a 57-year-old female with increasingly severe left knee pain. Her plain x-rays revealed naqu-zj-abcv arthritis. She failed conservative management with anti-inflammatories, pain medication, and intraarticular cortisone injections. Due to the fact that she has continued pain and decreased quality of life, the patient elected to proceed with left total knee arthroplasty. She was taken to the operating room under the care of Dr. Gladys Dunn on the date of 04/26/18. The patient tolerated the procedure well and left the operating room in stable condition. Postoperatively, she progressed very well with her physical therapy and occupational therapy goals. Upon evaluation, postop day 1, she did have some calf pain which was of concern. I did order a venous Doppler of the left lower extremity to rule out DVT. Her venous Doppler showed no evidence of deep venous thrombosis. Her incision is healing nicely and her pain is under excellent control. She feels ready to go home today and she is medically and orthopedically stable to do so. CONDITION ON DISCHARGE: Vital signs 97.4, pulse 73, respiratory rate 16, O2 sat is 100% on room air, blood pressure 134/76. LABORATORY DATA: Hemoglobin 10.3, hematocrit 31. PHYSICAL EXAMINATION: Her left knee incision is benign without drainage erythema or evidence of infection. Her calf is mildly tender to palpation as above; however, venous Doppler negative for evidence of DVT. There is no calf swelling or redness noted. Her sensation and circulation are intact distally with the 2+ pedal pulse. PLAN: Discharge to home. She will participate in outpatient physical therapy. She is prescribed Eliquis 2.5 mg p.o. b.i.d. and she is given a prescription of Percocet 5/325 one to two tablets q.4 hours p.r.n. pain #70, 0 refill, MDD 10. She will follow up as scheduled with Dr. Shaun in roughly 10 to 14 days in the office. All questions were answered. ADAN GAY [id number]/[facility] #: [id number] JESSICA
== END 2018-04-27 15:00 | disposition home or self-care (01) | DRG 302 ==
LOC: AA 11:11 → SSU 18:47
PROVIDERS: ADMIT Orthopaedic Surgery Adult Reconstructive Orthopaedic Surgery; ATTEND Orthopaedic Surgery Adult Reconstructive Orthopaedic Surgery
PROC: 0SRD069 Replacement of Left Knee Joint with Oxidized Zirconium on Polyethylene Synthetic Substitute, Cemented, Open Approach (ICD-10-PCS; principal; 2018-04-26 14:00)
DX: M17.0 Bilateral primary osteoarthritis of knee (principal); I10 Essential (primary) hypertension; M81.0 Age-related osteoporosis without current pathological fracture; M25.462 Effusion, left knee; R94.31 Abnormal electrocardiogram [ECG] [EKG]; E78.5 Hyperlipidemia, unspecified; M25.762 Osteophyte, left knee; F32.9 Major depressive disorder, single episode, unspecified; F41.9 Anxiety disorder, unspecified; Z85.3 Personal history of malignant neoplasm of breast; Z90.89 Acquired absence of other organs; Z90.710 Acquired absence of both cervix and uterus; Z90.10 Acquired absence of unspecified breast and nipple; Z88.1 Allergy status to other antibiotic agents; Z88.8 Allergy status to other drugs, medicaments and biological substances; Z72.89 Other problems related to lifestyle; Z87.891 Personal history of nicotine dependence; Z82.49 Family history of ischemic heart disease and other diseases of the circulatory system; Z80.3 Family history of malignant neoplasm of breast; Z80.0 Family history of malignant neoplasm of digestive organs; Z80.8 Family history of malignant neoplasm of other organs or systems; Z82.61 Family history of arthritis; Z81.8 Family history of other mental and behavioral disorders
CPT/HCPCS: 36415; 80048; 85014; 85018; 85049; 85610; 88305; 88311; A9270-GY; J0690; J1100; J1650; J2250; J2704; J2795; J3010

== ENCOUNTER 2018-06-28 05:37 | Day surgery (SDC) | payer BC ==
--- NOTE | 2018-06-25 08:14 | HP ---
HISTORY AND PHYSICAL: DATE OF ADMISSION/SURGERY: 06/28/18 DATE OF OFFICE VISIT: 06/22/18 SURGEON: Gladys Dunn MD * (DICTATED BY ADAN CHAMBERS) PROCEDURE: Manipulation under anesthesia, left total knee arthroplasty. CHIEF COMPLAINT: Stiffness, left total knee arthroplasty. HISTORY OF PRESENT ILLNESS: Ms. Noel is a 58-year-old female who underwent a left total knee arthroplasty back on 04/26/18. It has been almost 8 weeks since her surgery, she continues to have stiffness of her left knee and has elected to proceed with manipulation under anesthesia. PAST MEDICAL HISTORY: Breast cancer, hypertension, and diverticulitis. PAST SURGICAL HISTORY: Hysterectomy, left total knee arthroplasty, appendectomy , lumpectomy, mastectomy, , and breast biopsies. CURRENT MEDICATIONS: 1. Tamoxifen 20 mg a day. 2. Lisinopril/hydrochlorothiazide 20/12.5 mg daily. 3. Potassium chloride 20 mEq daily. 4. Multivitamin. 5. Calcium. 6. Vitamin D. ALLERGIES: To ZITHROMAX and COMPAZINE. FAMILY HISTORY: Cancer and dementia. SOCIAL HISTORY: She is a 58-year-old female. She lives alone. She does not smoke. REVIEW OF SYSTEMS: A complete 14-point review of systems was reviewed with the patient. It was all negative or noncontributory. She denies history of DVT, PE , hepatitis, HIV, or anesthesia problems. PHYSICAL EXAMINATION GENERAL: She is well developed, well nourished, in no acute distress. VITAL SIGNS: She stands 61 inches tall, weighs 178 pounds. Her blood pressure is 124/76 and her heart rate is 84. HEENT: Normocephalic, atraumatic. NECK: Supple. No palpable lymph nodes. PULMONARY: The lungs are clear to auscultation bilaterally. CARDIO: Regular rate and rhythm. Strong S1, S2. ABDOMEN: Soft, nontender, and nondistended. NEUROLOGICAL: She is alert and oriented x3. MUSCULOSKELETAL: Left lower extremity: Skin is intact. The incision is well healed. There are no signs of infection. There remains some moderate effusion. Range of motion is 5 to 70 degrees. Her calf is soft and nontender. She has a 2+ dorsalis pedis pulse. She is able to dorsiflex and plantarflex. ASSESSMENT AND PLAN: Ms. Noel is a 58-year-old female with stiffness of her left total knee arthroplasty. She has elected to proceed with manipulation under anesthesia, which is scheduled for 06/28/[address] Dunn discussed the risks and benefits of the surgery at today's visit and all of her questions were answered. She will follow up with Dr. Dunn 7 to 10 days following the surgery. ADAN CHAMBERS [id number]/[facility] [place] #: [id number] MTDRenate
[~2018-06-28 05:37] MED LIST changes: -Acetaminophen IV 1GM/100ML * 1,000 MG/100 ML VIAL IVPB ONE; -Buffered Lidocaine 0.9% SYRIN* 5 ML/SYR SYRINGE INTRADERM ONE; +Buffered Lidocaine 1% SYRIN* 1 ML/SYRINGE INTRADERM ONE; -Dexamethasone IV* 4 MG/ML 1 ML (4 MG) IV SLOW PU ONE; -Famotidine IV* 10 MG/ML 2 ML (20 mg) IV ONE; -Gabapentin CAP(*) 300 MG PO ONE; -Lactated Ringers 1000 ML Bag* 1,000 ML IV SCH; -Tranexamic Acid 1,000 MG in NS 0.9% 50 ML* (outpatient use) IV SCH; -celeCOXIB CAP* 200 MG PO ONE
[2018-06-28] MEDS ORDERED: Lactated Ringers 1000 ML Bag* 1,000 ML IV SCH (06:00)
[2018-06-28] MEDS ORDERED: Naloxone* 0.4 MG/ML 1 ML VIAL IV PRN (06:36)
[2018-06-28] MEDS ORDERED: fentaNYL* 50 MCG/ML 2 ML VIAL (100 MCG VIAL) IV PRN (06:36)
[2018-06-28] MEDS ORDERED: DiMENhydriNATE IV* 50 MG/ML VIAL IV PUSH PRN (06:36)
[2018-06-28] MEDS ORDERED: Succinylcholine* 20 MG/ML 10 ML VIAL ONE (06:57)
[2018-06-28] MEDS ORDERED: Propofol* 10 MG/ML 20 ML BTL ONE (06:57)
[2018-06-28] MEDS ORDERED: Lidocaine 2% PF * 5 ML VIAL ONE (06:58)
[2018-06-28] MEDS ORDERED: fentaNYL* 50 MCG/ML 2 ML VIAL (100 MCG VIAL) ONE (07:02)
[2018-06-28] MEDS ORDERED: Midazolam* 1 MG/ML 2 ML VIAL (2 MG) ONE (07:02)
[2018-06-28] MEDS ORDERED: Ketorolac INJ* 30 MG/ML 1 ML VIAL ONE (07:35)
[2018-06-28] MEDS ORDERED: Ondansetron INJ* 2 MG/ML VIAL ONE (07:35)
[2018-06-28] MEDS ORDERED: Metoclopramide IV* 5 MG/ML 2 ML VIAL ONE (07:35)
[2018-06-28] MEDS ORDERED: Dexamethasone IV* 4 MG/ML 1 ML (4 MG) ONE (07:35)
[2018-06-28] MEDS ORDERED: Acetaminophen TAB* 325 MG ONE (07:54)
[2018-06-28 08:36] VITALS: BP 119/79
--- NOTE | 2018-06-28 21:00 | OP ---
DATE OF OPERATION: 06/28/18 - [facility] DATE OF : 64 SURGEON: Gladys Dunn MD. ANESTHESIOLOGIST: Dr. Gonzalez. ANESTHESIA: General. 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 OPERATIVE PROCEDURE: Manipulation under anesthesia of the left total knee arthroplasty. COMPLICATIONS: None. ESTIMATED BLOOD LOSS: None. BRIEF HISTORY/INDICATIONS: Ms. Noel had left total knee arthroplasty for severe arthritis on 04/26/18. Post-operatively, she suffered from some pain control problems and knee stiffness. She did not advance as much as we wished with physical therapy. By 6 weeks postop, she had no more than 80 degrees of knee flexion. We discussed the risks and benefits of manipulation under anesthesia of the left total knee arthroplasty and she wished to proceed. Informed consent was obtained from the patient. She understood the risks of surgery included but were not limited to bleeding, infection, damage to nearby structures, perioperative fracture, continued stiffness, need for another surgery, anesthesia complications, stroke, heart attack, blood clot, and . She wished to proceed. INTRAOPERATIVE FINDINGS: Preoperatively, the patient was noted to have 5 to 65 degrees of knee flexion. After the manipulation, she had 5 to 125 degrees of flexion. DESCRIPTION OF PROCEDURE: Ms. Noel was identified in the preanesthesia unit. Her left lower extremity was marked as the correct operative site. Informed consent was signed and placed in the chart. The patient was taken to the operating room and placed under general anesthesia without difficulty. A preop time-out was made to correctly identify the patient's side and site. The left knee was carefully flexed and extended. There was audible and palpable breakup of scar tissue. The knee easily was flexed to 125 degrees of flexion. No additional extension was obtained. AP and lateral C-arm views were taken to confirm no periprosthetic fracture. The patient's anesthesia was reversed without difficulty. She was taken to the PACU in stable condition. She had physical therapy scheduled for postop day 1 and will follow up within 1 week's time for a recheck. [id number]/[facility] #: [id number] MTDD
== END 2018-06-28 09:02 | disposition home or self-care (01) ==
LOC: OR 05:37
PROVIDERS: ATTEND Orthopaedic Surgery Adult Reconstructive Orthopaedic Surgery
DX: T84.82XA Fibrosis due to internal orthopedic prosthetic devices, implants and grafts, initial encounter (principal); Z96.652 Presence of left artificial knee joint; Z85.3 Personal history of malignant neoplasm of breast; I10 Essential (primary) hypertension; M19.90 Unspecified osteoarthritis, unspecified site
CPT/HCPCS: 76000; A9270-GY; J0330; J1100; J1885; J2250; J2405; J2704; J2765; J3010

== ENCOUNTER 2018-10-04 13:34 | Emergency (ER) | payer BC ==
--- OUTSIDE RECORDS SUMMARY | 2018-10-04 13:39 | XMS REPORT | Continuity of Care Document ---
:1960 External Reference #:[id number] Author Name Izabel Lo Care Team Providers Name Role Phone Jody Griggs M.D. Primary Care Physician Unavailable Payers Date Identification Numbers Payment Provider Subscriber Policy Number: [id number] [employer] Yady Tolbert PayID: [id number] [address] [address] [place] [address] Advance Directives Description No Information Available Problems Active Problems Provider Date Essential hypertension Chloe Chavarria NP Onset: 07/26/2017 Malignant neoplasm of female breast Chloe Chavarria NP Onset: 07/26/2017 Note: left Breast Ca with - sentinal node 2000, recurrance in lymph node - Mastectomy 2009 Osteoporosis Chloe Chavarria NP Onset: 07/26/2017 Arthritis of knee Chloe Chavarria NP Onset: 07/26/2017 Localized, primary osteoarthritis Gladys Dunn M.D. 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[employer] Tobacco Use Start: Unknown End: Former Cigarette Smoker Unknown ETOH Use 02/16/2018 Drinks 2 Alcoholic Beverages Per Week Tobacco Use Start: Unknown End: Patient is a former smoked 1 pk/day for Unknown smoker 6 yrs age [age] Recreational Drug Use Denies Drug Use Tobacco Use Start: Unknown Light tobacco smoker (10 or fewer cigarettes/day) Smoking Status Reviewed: 09/06/18 Light tobacco smoker (10 or fewer cigarettes/day) Exercise Type/Frequency Exercises rarely Allergies, Adverse Reactions, Alerts Active Allergies Reaction Severity Comments Date Zithromax upset stomach 07/26/2017 Compazine severe depression 07/26/2017 Medications Active Medications SIG Qnty Indications Ordering Date Provider Amoxicillin take 4 tablets by 4tabs Gladys Dunn, 07/31/2018 500mg mouth 1 hour M.D. Tablets before dental procedure Tramadol HCL 1 tablet by mouth 40tabs M25.562 Gladys Dunn, 05/09/2018 50mg every 6 hours as M.D. Tablets needed pain Compression - ble 1units M25.562 Gladys Dunn, 05/09/2018 Stockings swelling/edema- M.D. Misc need thigh high Potassium Chloride take 2 tablets by 180tabs Jody Griggs MD 07/26/2017 ER mouth every day 10Meq Tablets ER Lisinopril-Hydrochlo take 2 tablets by 180tabs Rajiv Valdez 07/26/2017 rothiazide mouth every day Kaila Chavez,FACP 20-12.5mg Tablets Calcium 600 High daily Unknown Potency 600mg Tablets Vitamin D High 1 by mouth every Unknown Potency day 2000Units Capsules Tamoxifen Citrate daily Unknown 20mg Tablets History Medications Keflex 1 tab po tid x 5 15caps Gladys Dunn, 04/29/2018 - 500mg Capsules days M.D. 05/08/2018 Advil 2 tabs 2 times a Rajiv Valdez 02/16/2018 - 200mg Tablets day as needed Kaila Chavez,FACP 04/17/2018 Benzonatate one tab three 21caps R05 Chloe Chavarria, 07/26/2017 - 200mg times a day for [employer] 10/17/2017 Capsules cough Multi For Her once a day otc Unknown - Capsules 04/17/2018 Lisinopril 1 by mouth every Unknown - 20mg Tablets day 07/26/2017 Letrozole 1 by mouth every Unknown - 2.5mg Tablets day 10/17/2017 Hydrocodone Unknown - 06/21/2018 Eliquis Unknown - 06/21/2018 Medications Administered in Office Medication SIG Qnty Indications Ordering Provider Date Inj, Regadenoson, 0.1 MG Bert Edwards M.D., 04/23/2018 Injection FACC, FASNC Technetium TC 99M Bert Edwards M.D., 04/23/2018 Tetrofosmin, Per Unit Dose FACC, FASNC Up To 40 Millicuries Injection Synvisc Or Synvisc-One Gladys Dunn M.D. 11/29/2017 Injection 1 MG Injection Synvisc Or Synvisc-One Gladys Dunn M.D. 11/29/2017 Injection 1 MG Injection Synvisc Or Synvisc-One ADAN Kasper 11/22/2017 Injection 1 MG Injection Synvisc Or Synvisc-One ADAN Kasper 11/22/2017 Injection 1 MG Injection Synvisc Or Synvisc-One Gladys Dunn M.D. 11/15/2017 Injection 1 MG Injection Synvisc Or Synvisc-One Gladys Dunn M.D. 11/15/2017 Injection 1 MG Injection Immunizations Description No Information Available Vital Signs Date Vital Result Comment 09/06/2018 8:55am Height 61 inches 5'1" Weight 179.00 lb Heart Rate 91 /min BP Systolic Sitting 127 mmHg BP Diastolic Sitting 78 mmHg BMI (Body Mass Index) 33.8 kg/m2 07/23/2018 1:56pm Height 61 inches 5'1" Weight 183.00 lb BP Systolic 123 mmHg BP Diastolic 81 mmHg Respiratory Rate 18 /min Pain Level 2 BMI (Body Mass Index) 34.6 kg/m2 07/06/2018 9:37am Height 61 inches 5'1" Weight 183.00 lb BP Systolic 122 mmHg BP Diastolic 77 mmHg Respiratory Rate 16 /min Pain Level 3 BMI (Body Mass Index) 34.6 kg/m2 06/22/2018 8:29am Height 61 inches 5'1" Weight 178.00 lb Heart Rate 84 /min BP Systolic 124 mmHg BP Diastolic 76 mmHg Body Temperature 98.6 F BMI (Body Mass Index) 33.6 kg/m2 06/01/2018 8:28am Height 61 inches 5'1" Weight 180.00 lb BP Systolic 120 mmHg BP Diastolic 76 mmHg Body Temperature 98.0 F BMI (Body Mass Index) 34.0 kg/m2 05/09/2018 12:27pm Height 60 inches 5'0" Weight 185.00 lb BP Systolic 122 mmHg BP Diastolic 76 mmHg Body Temperature 98.6 F BMI (Body Mass Index) 36.1 kg/m2 04/25/2018 8:27am Heart Rate 80 /min radial reg BP Systolic Sitting 124 mmHg reg cuff right arm BP Diastolic Sitting 68 mmHg reg cuff right arm BP Systolic Standing 120 mmHg BP Diastolic Standing 74 mmHg Respiratory Rate 14 /min Pain Level 7 knee pain slight tension headache 04/18/2018 9:36am Height 60 inches 5'0" Weight 181.00 lb with out shoes Heart Rate 80 /min BP Systolic Sitting 124 mmHg Rue lg cuff BP Diastolic Sitting 80 mmHg Rue lg cuff BP Systolic Standing 124 mmHg Rue lg cuff BP Diastolic Standing 88 mmHg Rue lg cuff Respiratory Rate 18 /min BMI (Body Mass Index) 35.3 kg/m2 04/18/2018 8:34am Height 61 inches 5'1" Weight [...] Date Facility Test Result H/L Range Note Urinalysis Profile 04/19/2018 [facility] Urine Color Yellow [address] [place] [address] [phone] Urine Appearance Clear Urine Specific Brooks 1.012 N 1.010-1.030 Urine pH 6.0 N 5-9 Urine Urobilinogen Negative Negative Urine Ketones Negative Negative Urine Protein Negative Negative Urine Leukocytes Trace Abnormal Negative Urine Blood 1+ Abnormal Negative Urine Nitrite Negative Negative Urine Bilirubin Negative Negative Urine Glucose Negative Negative Urine White Blood Cell Trace(0-5/hpf) Absent Urine Red Blood Cell Trace(0-2/hpf) Absent Urine Bacteria Absent Absent Urine Squamous Epithelial Cell Present Abnormal Absent Type & Screen 04/19/2018 [facility] Patient Blood Type A Positive [address] [place] [address] [phone] Antibody Screen NEGATIVE Urine Culture And 04/19/2018 [facility] Urine Culture SEE RESULT [address] [place] [address] [phone] Basic Metabolic 04/17/2018 [facility] Sodium 141 mmol/L N 135- [address] [place] [address] [phone] Potassium 3.7 mmol/L N 3.5-5.0 Chloride 104 mmol/L N 101-111 Co2 Carbon Dioxide 27 mmol/L N 22-32 Anion Gap 10 mmol/L N 2-11 Glucose 128 mg/dL High 70-100 Blood Urea Nitrogen 18 mg/dL N 6-24 Creatinine 0.68 mg/dL N 0.51-0.95 BUN/Creatinine Ratio 26.5 High 8-20 Calcium 9.5 mg/dL N 8.6-10.3 Egfr Non- 89.8 >60 Egfr 108.7 >60 2 CBC Auto Diff 04/17/2018 [facility] White Blood 7.8 10^3/uL N 3.5-10.[address] [place] [address] [phone] Red Blood Count 4.43 10^6/uL N 4.00-5.40 [...] Nucleated Red Blood Cells % 0 Laboratory 04/17/2018 [facility] Partial Thrombo 29.6 N 26.0- 36.[address] [place] [address] [phone] Inr/Protime 04/17/2018 [facility] Inr 1.01 N 0.77-1.[address] [place] [address] [phone] Lipid Profile 11/17/2017 [facility] Triglycerides 212 mg/dL 3 (Trig/Chol/HDL [address] ) [place] [address] [phone] Cholesterol 213 mg/dL 4 HDL Cholesterol 41.5 mg/dL 5 LDL Cholesterol 129 mg/dL 6 Basic Metabolic Panel 11/17/2017 [facility] Sodium 138 mmol/L N [address] [place] [address] [phone] Potassium 3.8 mmol/L N 3.5-5.0 Chloride 105 mmol/L N 101-111 Co2 Carbon Dioxide 27 mmol/L N 22-32 Anion Gap 6 mmol/L N 2-11 Glucose 95 mg/dL N 70-100 Blood Urea Nitrogen 17 mg/dL N 6-24 Creatinine 0.66 mg/dL N 0.51-0.95 BUN/Creatinine Ratio 25.8 High 8-20 Calcium 9.4 mg/dL N 8.6-10.3 Egfr Non- 93.0 >60 Egfr 112.5 >60 7 1 SEE RESULT BELOW Name: YADY TOLBERT : [address]: Gladys Dunn MD Acct: [id number] Unit: [id number] AGE: 57 Location: PAT Re04/19/18 SEX: F Status: REG REF SPEC: [id number] [place]STER: 04/19/18-[address]: Gladys Dunn MD REQ: [id number] RECD: 04/19/18 STATUS: ROSELINE ALEXANDER DR: Rajiv Chavez MD _ SOURCE: URINE SPDESC: ORDERED: Urine Culture QUERIES: Urine Source: Random Procedure Result Reported Site Urine Culture Final 04/20/18- 1227 ML No growth of clinically significant organisms * ML - Main Lab . END OF REPORT DEPARTMENT OF PATHOLOGY, [address] [place] [address] Ad Gerardo M.D. Director [facility] # [id number] 2 Because ethnic data is not always [...] High: 130-159 High: 160-189 Very High: >189 7 Because ethnic data is not always readily [...] 15-29 5 Kidney failure <15 (or dialysis) Procedures Date Code Description Status 08/06/2018 039539722 Bone Mineral Density Test Completed 06/28/2018 79510 Manipulation Knee Under Generl Anesth. Incl Completed Application Traction 04/26/2018 88534 TKR Total Knee Replacement Completed 04/26/2018 31175 TKR Total Knee Replacement Completed 04/24/2018 02286 ECHO Transthoracic, Real-Time 2D With Doppler And Completed Color Flow 04/24/2018 39333 ECHO Transthoracic, Real-Time 2D With Doppler And Completed Color Flow 04/23/2018 58000 Stress Test Completed 04/23/2018 66349 Myocardial Perfusion Imaging Tomographic (Spect) Completed Multiple Studies 04/18/2018 87902 EKG Tracing & Interpretation Completed 04/16/2018 96332 EKG Tracing & Interpretation Completed 12/15/2017 [id number] Mammogram Completed 11/29/201760268 Inject/Drain Joint/Bursa Major W/O US Completed 11/22/2017 66183 Inject/Drain Joint/Bursa Major W/O US Completed 11/15/2017 06258 Inject/Drain Joint/Bursa Major W/O US Completed 05/08/2013 61672168 Colonoscopy Completed Encounters Type Date Location Provider Dx Diagnosis Office Visit 04/26/2018 [facility] Z96.652 Presence of left 10:50a [facility] [place], [employer] artificial knee Hospitalists joint I10 Essential (primary) hypertension E78.5 Hyperlipidemia, unspecified F41.8 Other specified anxiety disorders Office Visit 04/25/2018 [facility] R94.31 Abnormal 8:45a Cardiology Cody Edwards M.D., 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 FACC, FASNC [ECG] [EKG] I10 Essential (primary) hypertension Office Visit 04/18/2018 Evin Baron R94.31 Abnormal 10:00a Cardiology Cody Edwards M.D., 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 FACC, FASNC [ECG] [EKG] R06.00 Dyspnea, unspecified I10 Essential (primary) hypertension 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 M.D. knee M25.562 Pain in left knee M25.461 Effusion, right knee M25.462 Effusion, left knee M17.0 Bilateral primary osteoarthritis of knee Office Visit 02/16/2018 8:40a [facility] Internal Rajiv Valdez I10 Essential ( primary) Medicine - Kaila Chavez,FACP hypertension [address] M17.0 Bilateral primary osteoarthritis of knee M81.8 Other osteoporosis without current pathological fracture Office Visit 10/18/2017 8:00a [facility] Gladys Dunn, M25.561 Pain in right Of [facility] M.D. knee M25.562 Pain in left knee M25.461 Effusion, right knee M25.462 Effusion, left knee M17.0 Bilateral primary osteoarthritis of knee M19.071 Primary osteoarthritis, right ankle and foot Office Visit 07/26/2017 2:00p [facility] Internal Chloe B34.9 Viral infection, Medicine - Chavarria, [employer] FOREM[employer] unspecified [address] R05 Cough I10 Essential (primary) hypertension Plan of Treatment Future Appointment(s):09/17/2018 9:00 am - Gladys Dunn M.D. at [facility]09/06/2018 - Jody Griggs MDZ00.00 Encounter for general adult medical examination without abnoComments:You are up to date with colon/ breast/cervical cancer screening. Your cholesterol profile and other labs are due in November, so please go for fasting blood draw and I will send you a letter with results within 2 weeks.Remember to wear sunscreen and see your dentist regularlyFor optimum health, I recommend some form of regular exercise and integrating a lot of plant-based foods into your daily dietI recommend you get a TdaP vaccine later this yearM81.0 Age-related osteoporosis without current pathological fractuComments:discuss treatment with your [id number] Essential (primary) hypertensionComments:Your high blood pressure is in excellent control on your current management.H61.21 Impacted cerumen, right earComments:For your ear wax:I would advise you to use warm olive oil drops in your ears once or twice weekly. This will help prevent the wax from building up in your ear canals. You can call for a nurse visit forear lavage if you're feeling plugged up or decreased [id number] Personal history of colonic polypsReferral: Hector Lei MD, Gastroenterology
--- OUTSIDE RECORDS SUMMARY | 2018-10-04 13:39 | XMS REPORT | Continuity of Care Document ---
:1960 External Reference #:[id number] Author Name Cassy Castillo Care Team Providers Name Role Phone Jody Griggs M.D. 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[employer] [facility] Tobacco Use Start: Unknown End: Former Cigarette Smoker Unknown ETOH Use 02/16/2018 Drinks 2 Alcoholic Beverages Per Week Tobacco Use Start: Unknown End: Patient is a former smoked 1 pk/day for Unknown smoker 6 yrs age [age] Recreational Drug Use Denies Drug Use Tobacco Use Start: Unknown Light tobacco smoker (10 or fewer cigarettes/day) Smoking Status Reviewed: 09/17/18 Light tobacco smoker (10 or fewer cigarettes/day) Exercise Type/Frequency Exercises rarely Allergies, Adverse Reactions, Alerts Active Allergies Reaction Severity Comments Date Zithromax upset stomach 07/26/2017 Compazine severe depression 07/26/2017 Medications Active Medications SIG Qnty Indications Ordering Date Provider Amoxicillin take 4 tablets by 4tabs Gladys Dunn, 07/31/2018 500mg mouth 1 hour M.D. Tablets before dental procedure Compression - ble 1units M25.562 Gladys Dunn, [...] Citrate daily Unknown 20mg Tablets History Medications Tramadol HCL 1 tablet by 40tabs M25.562 Gladys Dunn, 05/09/2018 - 50mg mouth every 6 M.D. 09/16/2018 Tablets hours as needed pain Keflex 1 tab po tid x 15caps Gladys Dunn, 04/29/2018 - 500mg Capsules 5 days M.D. 05/08/2018 Advil 2 tabs 2 times Rajiv Valdez 02/16/2018 - 200mg Tablets a day as needed Kaila Chavez,FACP 04/17/2018 Benzonatate one tab three 21caps R05 Chloe 07/26/2017 - 200mg times a day for DEENA Chavarria 10/17/2017 Capsules cough Multi For Her once a day otc Unknown - 04/17/2018 Capsules Lisinopril 1 by mouth Unknown - 20mg every day 07/26/2017 Tablets Letrozole 1 by mouth Unknown - 2.5mg every day 10/17/2017 Tablets Hydrocodone Unknown - 06/21/2018 Eliquis Unknown - [...] Available Vital Signs Date Vital Result Comment 09/17/2018 9:11am Height 61 inches 5'1" Weight 174.00 lb Heart Rate 79 /min Body Temperature 97.0 F O2 % BldC Oximetry 98 % BMI (Body Mass Index) 32.9 kg/m2 09/06/2018 8:55am Height 61 inches 5'1" Weight [...] Date Facility Test Result H/L Range Note Urine Culture And 04/19/2018 [facility] Urine Culture SEE RESULT [address] [place] [address] [phone] Type & Screen 04/19/2018 [facility] Patient Blood A Positive [address] [place] [address] [phone] Antibody Screen NEGATIVE Urinalysis Profile 04/19/2018 [facility] Urine Color Yellow [address] [place] [address] [phone] Urine Appearance Clear Urine Specific [place] 1.012 N 1.010-1.030 Urine pH 6.0 N [...] Urine Squamous Epithelial Cell Present Abnormal Absent Laboratory test 04/17/2018 [facility] Partial 29.6 seconds N 26.0-36.[address] [place] [address] PTT [phone] Inr/Protime 04/17/2018 [facility] Inr 1.01 N 0.77-1.[address] [place] [address] [phone] CBC Auto Diff 04/17/2018 [facility] White Blood 7.8 10^3/uL N 3.5-10.[address] [place] [address] [phone] Red Blood Count 4.43 10^6/uL N 4.00-5.40 [...] % Nucleated Red Blood Cells % 0 Basic Metabolic Panel 04/17/2018 [facility] Sodium 141 mmol/L N 135-145 [address] [place] [address] [phone] Potassium 3.7 mmol/L N 3.5-5.0 Chloride 104 mmol/L N 101-111 Co2 Carbon Dioxide 27 mmol/L N 22-32 Anion Gap 10 mmol/L N 2-11 Glucose 128 mg/dL High 70-100 Blood Urea Nitrogen 18 mg/dL N 6-24 Creatinine 0.68 mg/dL N 0.51-0.95 BUN/Creatinine Ratio 26.5 High 8-20 Calcium 9.5 mg/dL N 8.6-10.3 Egfr Non- 89.8 >60 Egfr 108.7 >60 2 Basic Metabolic Panel 11/17/2017 [facility] Sodium 138 mmol/L N 135-145 [address] [place] [address] [phone] Potassium 3.8 mmol/L N 3.5-5.0 Chloride 105 mmol/L N 101-111 Co2 Carbon Dioxide 27 mmol/L N 22-32 Anion Gap 6 mmol/L N 2-11 Glucose 95 mg/dL N 70-100 Blood Urea Nitrogen 17 mg/dL N 6-24 Creatinine 0.66 mg/dL N 0.51-0.95 BUN/Creatinine Ratio 25.8 High 8-20 Calcium 9.4 mg/dL N 8.6-10.3 Egfr Non- 93.0 >60 Egfr 112.5 >60 3 Lipid Profile 11/17/2017 [facility] Triglycerides 212 mg/dL 4 (Trig/Chol/HDL) [address] [place] [address] [phone] Cholesterol 213 mg/dL 5 HDL Cholesterol 41.5 mg/dL 6 LDL Cholesterol 129 mg/dL 7 1 SEE RESULT BELOW Name: YADY TOLBERT : [address]: Gladys Dunn MD Acct: [id number] Unit: [id number] AGE: 57 Location: [facility] Re04/19/18 SEX: F Status: REG REF SPEC: [id number] [place]: 04/19/18-[address]: Gladys Dunn MD REQ: [id number] RECD: 04/19/18 STATUS: ROSELINE ALEXANDER DR: Rajiv Chavez MD _ SOURCE: URINE SPDESC: ORDERED: Urine Culture QUERIES: Urine Source: Random Procedure Result Reported Site Urine Culture Final 04/20/18- 1227 ML No growth of clinically significant organisms * ML - Main Lab . END OF REPORT DEPARTMENT OF PATHOLOGY, [address] [place] [address] Ad Gerardo M.D. Director [facility] # [id number] 2 Because ethnic data is not always [...] 5 Kidney failure <15 (or dialysis) 3 Because ethnic data is not always readily [...] 15-29 5 Kidney failure <15 (or dialysis) 4 Desirable: <150 Borderline High: 150-199 High: 200-499 Very High: >500 5 Desirable: <200 Borderline High: 200-239 High: >239 6 Low: <40 Desirable: 40-60 High: >60 7 Desirable: <100 Near Optimal: 100-129 Borderline High: 130-159 High: 160-189 Very High: >189 Procedures Date Code Description Status 08/06/2018 [id number] Bone Mineral Density Test Completed 06/28/2018 89460 Manipulation Knee Under Generl Anesth. Incl Completed Application Traction 04/26/2018 88991 TKR Total Knee Replacement Completed 04/26/2018 75860 TKR Total Knee Replacement Completed 04/24/2018 07851 ECHO Transthoracic, Real-Time 2D With Doppler And Completed Color Flow 04/24/2018 31779 ECHO Transthoracic, Real-Time 2D With Doppler And Completed Color Flow 04/23/2018 82405 Stress Test Completed 04/23/2018 12060 Myocardial Perfusion Imaging Tomographic (Spect) Completed Multiple Studies 04/18/2018 83151 EKG Tracing & Interpretation Completed 04/16/2018 66804 EKG Tracing & Interpretation Completed 12/15/2017 [id number] Mammogram Completed 11/29/2017 05858 Inject/Drain Joint/Bursa Major W/O US Completed 11/22/2017 10866 Inject/Drain Joint/Bursa Major W/O US Completed 11/15/2017 06771 Inject/Drain Joint/Bursa Major W/O US Completed 05/08/2013 87731896 Colonoscopy Completed Encounters Type Date Location Provider Dx Diagnosis Office Visit 09/06/2018 [facility] Jody Griggs MD Z00.00 Encntr for general 9:00a Medicine adult medical exam w/o abnormal findings M81.0 Age-related osteoporosis w/o current pathological fracture I10 Essential (primary) hypertension H61.21 Impacted cerumen, right ear Z86.010 Personal history of colonic polyps Office Visit 04/26/2018 [facility] Z96.652 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 of left 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,[facility] [place], 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 I10 Essential (primary) hypertension E78.5 Hyperlipidemia, unspecified F41.8 Other specified anxiety disorders Office Visit 04/25/2018 Evin Baron R94.31 Abnormal 8:45a [facility]a Edwards, electrocardiogram [facility] FACC, FASNC [ECG] [EKG] I10 Essential (primary) hypertension Office Visit 04/18/2018 Evin Baron R94.31 Abnormal 10:00a [facility] Of Kaila Edwards, electrocardiogram [facility] FACC, NADEGEJUSTICE [ECG] [EKG] R06.00 Dyspnea, unspecified I10 Essential (primary) hypertension 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 T45.1x5A Adverse effect of antineoplastic and immunosup drugs, init Office Visit 04/16/2018 3:20p [facility] Internal Jodyangelito Griggs, Z01.818 Encounter for other Medicine - [...] osteoarthritis of knee Office Visit 02/16/2018 8:40a [facility] Internal Rajiv Valdez I10 Essential ( [...] ankle and foot Office Visit 07/26/2017 2:00p [facility] Internal Chloe B34.9 Viral infection, Medicine - Chavarria, SERVICE 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
[2018-10-04 13:47] VITALS: BP 127/76
[2018-10-04] MEDS ORDERED: Tetan/Diph/Pertus SYR(Tdap)* 0.5 ML SYR(BOOSTRIX) use SYR IM ONE (14:16)
--- NOTE | 2018-10-04 14:24 | UC ---
Bite Injury/Animal HPI - HPI Summary HPI Summary: 58-year-old female presents for Bite to her right lower leg. States her cat bit her 2 days ago while playing. She has noticed some tenderness and redness around the site of the bite that has worsened over the past 2 days. She's been cleaning the wound with hydrogen peroxide and apply Neosporin ointment with no improvement. States cat has been immunized and is able to be quarantined. Last tetanus was 2007. Denies fever, chills, or drainage from the wound. - History of Current Complaint Chief Complaint: UCSkin Stated Complaint: CAT BITE Time Seen by Provider: 10/04/18 13:48 Hx Obtained From: Patient Pain Intensity: 2 - Allergies/Home Medications Allergies/Adverse Reactions: Allergies Allergy/AdvReac Type Severity Reaction Status Date / Time prochlorperazine Allergy Severe See Comment Verified 10/04/18 13:42 [From Compazine] azithromycin [From Zithromax] Allergy Mild Diarrhea Verified 10/04/18 13:42 Home Medications: Home Medications Hydrogen Peroxide 1 ml TOPICAL DAILY PRN 10/04/18 [History Confirmed 10/04/18] Neomycin/Bacitracin/Polymyxinb [Neosporin Ointment] 1 applic TOPICAL DAILY PRN 10/04/18 [History Confirmed 10/04/18] PMH/Surg Hx/FS Hx/Imm Hx Cardiovascular History: Hypertension Cancer History: Breast Cancer - Surgical History Surgical History: Yes Surgery Procedure, Year, and Place: x1, Left mastectomy. hysterectomy. appendectomy. lumpectomy. left total knee arthroplasty 2017 - Family History Known Family History: Positive: Non-Contributory - Social History Occupation: Employed Full-time Lives: With Family Alcohol Use: Weekly Alcohol Amount: 2 per week Substance Use Type: None Smoking Status (MU): Former Smoker Amount Used/How Often: pack a day for 6 months When Did the Patient Quit Smoking/Using Tobacco: 30 years ago - Immunization History Most Recent Influenza Vaccination: never Most Recent Pneumonia Vaccination: never Review of Systems All Other Systems Reviewed And Are Negative: Yes Constitutional: Negative: Fever, Chills Skin: Positive: Other - See HPI Respiratory: Positive: Negative Cardiovascular: Positive: Negative Gastrointestinal: Positive: Negative Genitourinary: Positive: Negative Musculoskeletal: Positive: Negative Neurological: Positive: Negative Is Patient Immunocompromised?: No Physical Exam - Summary Physical Exam Summary: GENERAL APPEARANCE: Well developed, well nourished, alert and cooperative, and appears to be in no acute distress. CARDIAC: Normal S1 and S2. No S3, S4 or murmurs. Rhythm is regular. There is no peripheral edema, cyanosis or pallor. Extremities are warm and well perfused. Capillary refill is less than 2 seconds. Peripheral pulses intact. LUNGS: Clear to auscultation without rales, rhonchi, wheezing or diminished breath sounds. ABDOMEN: Positive bowel sounds. Soft, nondistended, nontender. No guarding or rebound. No masses or hepatosplenomegally. MUSKULOSKELETAL: ROM intact to all extremities. No joint erythema or tenderness. Normal muscular development. Normal gait. SKIN: Small crusted puncture wound to the anterior mid right lower leg with circular area of erythema 6 cm in diameter with mild increase in warmth. No induration, fluctuance, or discharge noted. Triage Information Reviewed: Yes Vital Signs: Initial Vital Signs Temp 98.7 F 10/04/18 13:39 Pulse 75 10/04/18 13:39 Resp 18 10/04/18 13:39 BP 127/76 10/04/18 13:39 Pulse Ox 100 10/04/18 13:39 Vital Signs Reviewed: Yes Bite Injury Course/Dx - Course Course Of Treatment: 58-year-old female presents for Bite to her right lower leg. States her cat bit her 2 days ago while playing. She has noticed some tenderness and redness around the site of the bite that has worsened over the past 2 days. She's been cleaning the wound with hydrogen peroxide and apply Neosporin ointment with no improvement. States cat has been immunized and is able to be quarantined. Last tetanus was 2007. Denies fever, chills, or drainage from the wound. Afebrile. Vital signs stable. Patient has small crusted puncture wound to the anterior mid right lower leg with circular area of erythema 6 cm in diameter with mild increase in warmth. No induration, fluctuance, or discharge noted. Remainder of exam was unremarkable. Since the cat is immunized unable to be quarantined there is no indication for RIG at this time. Will treat for an infected cat bite with Augmentin 875 mg twice a day 10 days. Her tetanus was updated. She is to follow-up with her primary care provider in 3-5 days if symptoms are not improving. Anticipatory guidance and warning symptoms were reviewed with the patient. Verbalized understanding and agrees with plan of care. - Differential Dx/Diagnosis Differential Diagnosis/HQI/PQRI: Cellulitis, Other - cat bite Provider Diagnosis: Cat bite of right lower leg with infection Discharge - Sign-Out/Discharge Documenting (check all that apply): Patient Departure All imaging exams completed and their final reports reviewed: No Studies - Discharge Plan Condition: Stable Disposition: HOME Prescriptions: Amoxicillin/Clavulanate TAB* [Augmentin TAB 875*] 875 mg PO BID #20 tab Patient Education Materials: Animal Bite (ED) Referrals: Jody Griggs MD [Primary Care Provider] - 3 Days Additional Instructions: The cat bite to your lower leg appears to be infected. We will start you on an antibiotic to treat the infection. Take Augmentin 875 mg 1 tab twice a day for 10 days. Take with food to avoid upset stomach. Be sure to complete the entire course even if feeling better. Your tetanus was updated today. Be sure to notify your primary care provider so they can update their records. Keep the wound clean with a mild soap and water. You should clean this at least twice a day. You may continue to put an antibiotic ointment on the wound and keep it covered with a dressing. Use acetaminophen (Tylenol) or ibuprofen (Advil, Motrin) according to directions as needed for pain. Follow up with your primary care provider in 3-5 days if no improvement in your symptoms. Seek immediate medical attention in the emergency room if you develop a fever greater than 100.5 F, have redness that spreads, red streaking up the leg, increased swelling of the leg, severe pain that is not managed with pain medication, or any worsening of symptoms. - Billing Disposition and Condition Condition: STABLE Disposition: Home
== END 2018-10-04 14:30 | disposition home or self-care (01) ==
LOC: UCEAST 13:34
DX: S81.851A Open bite, right lower leg, initial encounter (principal); L08.9 Local infection of the skin and subcutaneous tissue, unspecified; I10 Essential (primary) hypertension; Z88.8 Allergy status to other drugs, medicaments and biological substances; Z88.1 Allergy status to other antibiotic agents; Z87.891 Personal history of nicotine dependence; W55.01XA Bitten by cat, initial encounter; Y92.9 Unspecified place or not applicable; Y93.89 Activity, other specified
CPT/HCPCS: 90471; 90715; 99212; G0463

== ENCOUNTER 2021-10-12 06:43 | Observation (INO) ==
[~2021-10-12 06:43] MED LIST changes: +Buffered Lidocaine 1% SYRIN 1 ml INTRADERM ONE; -Buffered Lidocaine 1% SYRIN* 1 ML/SYRINGE INTRADERM ONE; +Lactated Ringers 1000 ml BAG 1,000 ML IV SCH
[2021-10-12] MEDS ORDERED: ceFAZolin 2 GM in NS PREMIX 2 GM/100 ML BAG IVPB ONE (07:19)
[2021-10-12] MEDS ORDERED: HYDROmorphone 1 MG/1 ML SYRINGE IV PRN (08:08)
[2021-10-12] MEDS ORDERED: Naloxone 0.4 mg VIAL 0.4 mg/ml 1 ml VIAL IV PRN (08:08)
[2021-10-12] MEDS ORDERED: ROPIVACAINE 5 MG/ML 30 ML BTL (0.5%) ONE (08:47)
[2021-10-12] MEDS ORDERED: Midazolam 2 mg/2 ml VIAL 1 mg/ml 2 ml VIAL (2 mg) ONE (08:53)
[2021-10-12] MEDS ORDERED: fentaNYL 250 mcg/5 ml 50 MCG/ML 5 ml VIAL (250 MCG) ONE (08:53)
[2021-10-12] MEDS ORDERED: Lidocaine 1% 50 ML MDV VIAL ONE (08:54)
[2021-10-12] MEDS ORDERED: Phenylephrine IV 10 MG/ML 1 ml VIAL ONE ×2 (08:54→15:19)
[2021-10-12] MEDS ORDERED: Dexamethasone IV 4 MG/ML VIAL 1 ml VIAL ONE ×2 (10:24→13:53)
[2021-10-12] MEDS ORDERED: Ondansetron 4 mg VIAL 2 MG/ML 2 ml VIAL ONE ×2 (10:24→13:53)
[2021-10-12] MEDS ORDERED: Morphine 2 MG/ML SYRINGE IV PRN (11:15)
[2021-10-12] MEDS ORDERED: Lactulose 30 ml UDC PO PRN (11:15)
[2021-10-12] MEDS ORDERED: Ondansetron ODT 4 mg TAB 4 MG TAB PO PRN (11:15)
[2021-10-12] MEDS ORDERED: Magnesium Hydroxide LIQ 30 ML UDC PO PRN (11:15)
[2021-10-12] MEDS ORDERED: Ondansetron 4 mg VIAL 2 MG/ML 2 ml VIAL IV PRN (11:15)
[2021-10-12] MEDS ORDERED: Propofol 10 MG/ML 20 ML BTL ONE (11:20)
[2021-10-12] MEDS ORDERED: Glycopyrrolate IV 0.2 MG/ML 1 ML VIAL ONE (11:21)
[2021-10-12] MEDS ORDERED: Lidocaine 2% PF 10 ML AMP ONE (13:18)
[2021-10-12] MEDS: Lactated Ringers 1000 ml BAG 1,000 ML IV SCH (13:51)
[2021-10-12] MEDS ORDERED: Dextran 70/Hypromellose Tears Eye Drops 15 ml BTL (for Artificials Tears) BOTH EYES PRN (14:21)
[2021-10-12] MEDS: Magnesium Hydroxide LIQ 30 ML UDC PO SCH (20:33)
[2021-10-12] MEDS: ceFAZolin 1 GM ADVAN 1 GM in NS 0.9% 50 ML 50 ML IVPB SCH (20:33)
[2021-10-13] MEDS: Lactated Ringers 1000 ml BAG 1,000 ML IV SCH (01:43)
[2021-10-13] MEDS: ceFAZolin 1 GM ADVAN 1 GM in NS 0.9% 50 ML 50 ML IVPB SCH ×2 (03:44→12:57)
[2021-10-13 06:24] LABS: Hematocrit 31 % (35-47); Hemoglobin 10.5 g/dL (12.0-16.0); Mean Platelet Volume 8.3 fL (7.4-10.4); Platelet Count 293 10^3/uL (150-450)
[2021-10-13 06:39] LABS: Calcium 8.8 mg/dL (8.6-10.3); eGFR CKD-EPI 103.3 (>60)
[2021-10-13] MEDS ORDERED: Potassium Chlor 10 meq TAB PO SCH (09:00)
[2021-10-13] MEDS ORDERED: Vitamin THERAPEUTIC TAB PO SCH (09:00)
[2021-10-13] MEDS ORDERED: Lisinopril/HCTZ 20/12.5 TB(NF) PO SCH (09:00)
[2021-10-13] MEDS: Magnesium Hydroxide LIQ 30 ML UDC PO SCH (09:17)
[2021-10-13 11:51] VITALS: BP 109/73
== END 2021-10-13 14:55 | disposition home or self-care (01) ==
LOC: SSU 06:43 → SDS 06:43 → EDSTATUS 08:45
PROVIDERS: ADMIT Orthopaedic Surgery Adult Reconstructive Orthopaedic Surgery; ATTEND Orthopaedic Surgery Adult Reconstructive Orthopaedic Surgery